=== PATIENT | male | born 1995 | race Caucasian/White ===

== ENCOUNTER 2019-08-07 13:12 | Emergency (ER) | payer OTHER ==
[~2019-08-07] VITALS: Ht 185.4 cm; Wt 81.6 kg
[2019-08-07 13:14] VITALS: Ht 185.4 cm; Wt 81.6 kg
[2019-08-07 15:16] VITALS: BP 158/95
== END 2019-08-07 15:16 | disposition home or self-care (01) ==
LOC: ED 13:12
DX: L50.9 Urticaria, unspecified (principal); F17.210 Nicotine dependence, cigarettes, uncomplicated
CPT/HCPCS: 99406; J0171; J1200; J2930